=== PATIENT | female | born 1940 | race Caucasian/White ===

== ENCOUNTER → 2019-04-27 11:20 | Outpatient (CLI) | payer MEDICARE, OTHER, SELFPAY ==
--- NOTE | 2019-04-27 | DI.RAD.S_ITS ---
PROCEDURE: XR CHEST 2V INDICATIONS: COUGH TECHNIQUE: 2 views of the chest were acquired. COMPARISON: None. FINDINGS: Surgical changes and devices: None. Lungs and pleura: No pleural effusion or pneumothorax. There are diffuse hazy and reticular pulmonary opacities predominantly within the perihilar regions bilaterally. There is a more focal approximately 2.0 cm on opacity projecting over the right upper lobe/right perihilar region. Mediastinum: Mediastinal contours are normal. Heart size is normal. Bones and chest wall: No suspicious bony abnormalities. Soft tissues appear unremarkable. Mild multilevel degenerative changes of the spine. IMPRESSION: Diffuse hazy and reticular pulmonary opacities which can be seen with mild pulmonary edema versus a viral respiratory tract infection. There is an approximately 2.0 cm more focal pulmonary opacity projecting over the right upper lobe/right superior perihilar region concerning for pneumonia versus a pulmonary mass. Recommend followup CT of the chest (versus followup chest radiograph after treatment) to evaluate/exclude an underlying pulmonary malignancy. Findings discussed with the ordering provider Dr. Nadege Eubanks at 4:35 PM on 04/27/[address] Moncada. Dictated by: Wally Moncada M.D. on 04/27/2019 at 16:16 Approved by: Wally Moncada M.D. on 04/27/2019 at 16:38
== END ==
PROVIDERS: Visit Provider Internal Medicine
DX: R05 Cough (principal)
CPT/HCPCS: 71046

== ENCOUNTER → 2019-05-02 10:23 | Outpatient (CLI) | payer MEDICARE, OTHER, SELFPAY ==
--- NOTE | 2019-05-02 | DI.RAD.S_ITS ---
PROCEDURE: XR CHEST 2V INDICATIONS: COUGH TECHNIQUE: 2 views of the chest were acquired. COMPARISON: [facility], CT, CT CHEST W CON, 05/02/2019, 11:06. [facility], CR, XR CHEST 2V, 04/27/2019, 11:36. FINDINGS: Surgical changes and devices: None. Lungs and pleura: Lungs are abnormal with generalized interstitial prominence, and focal increased radiodensity with indistinct margination is present at the junction of the middle and upper thirds of the right lung, in an area also included on CT scanning 05/02/19. No pleural effusions or pneumothorax. Mediastinum: Mediastinal contours are normal. Heart size is normal. Bones and chest wall: No suspicious bony abnormalities. Soft tissues appear unremarkable. IMPRESSION: On review of the CT scan also obtained today there is a fracture with callus producing the area of indistinct increased radiodensity overlying the right upper lobe. This does not appear to represent a pathologic fracture, and benign etiology is presumed. Superimposed chronic appearing mild interstitial prominence is seen over the lung parenchyma elsewhere. Dictated by: Rudolph Shine M.D. on 05/02/2019 at 12:39 Approved by: Rudolph Shine M.D. on 05/02/2019 at 12:43
[2019-05-02 10:49] LABS: BUN Creatinine Ratio 18.9 (6-22); Blood Urea Nitrogen 17 mg/dL (7-17); Estimated Glomerular Filt Rate > 60.0 mL/min (>60)
--- NOTE | 2019-05-02 11:05 | DI.CT.S_ITS ---
PROCEDURE: CT CHEST W CON INDICATIONS: COUGH TECHNIQUE: After the administration of intravenous contrast, 5 mm thick sections acquired from the pulmonary apices to the posterior costophrenic angles. 1 mm axial lung, 5 mm thick coronal and sagittal reformats and 7 mm axial MIP were acquired. For radiation dose reduction, the following was used: automated exposure control, adjustment of mA and/or kV according to patient size. COMPARISON: , CR, XR CHEST 2V, 04/27/2019, 11:36. , CR, XR CHEST 2V, 05/02/2019, 10:46. FINDINGS: Image quality: Excellent. Lungs and pleura: There is abnormal interstitial prominence bilaterally with pattern suggestive of alveolitis, generalized, etiology and chronicity uncertain. Pulmonary fibrotic changes not seen as a honeycomb lung morphology but the disease process is significant.. No pleural effusions or pneumothorax. Central and peripheral airways are patent and normal in caliber. Mediastinum: Heart size is normal. No pericardial effusion. No mediastinal or hilar adenopathy by size criteria. Thoracic aorta and central pulmonary arteries are normal in size. Esophagus is normal in caliber. No hiatal hernia. Bones and chest wall: No suspicious bony lesions. No vertebral body compression fractures. No axillary or supraclavicular adenopathy by size criteria. Thyroid gland appears normal. Abdomen: Visualized upper abdominal solid organs appear normal. Upper abdominal bowel loops are normal in caliber. IMPRESSION: There is a generalized interstitial prominence that appears moderately severe bilaterally, seen also on plain film imaging. A mass within the lung parenchyma is not present. There is a rib fracture with callus formation over the junction of middle and upper thirds of the right lung, superimposed on the middle third of the right lung parenchyma in its transverse orientation. [employer] consultation may be warranted. Acute phase of idiopathic pulmonary fibrosis/alveolitis may be present as could atypical pneumonia or immune mediated pneumonitis. Extrinsic allergic alveolitis also should be considered. Dictated by: Rudolph Shine M.D. on 05/02/2019 at 13:38 Approved by: Rudolph Shine M.D. on 05/02/2019 at 13:42
== END ==
PROVIDERS: Visit Provider Internal Medicine
DX: R05 Cough (principal); Z01.812 Encounter for preprocedural laboratory examination
CPT/HCPCS: 36415; 71046; 71260; 82565; 84520

== ENCOUNTER → 2019-05-02 10:36 | Outpatient (CLI) | payer MEDICARE, SELFPAY | PROVIDERS: PCP Internal Medicine; Visit Provider Internal Medicine | DX: R05 Cough (principal) ==

== ENCOUNTER 2019-05-04 12:39 | Emergency (ER) | payer MEDICARE, OTHER, SELFPAY ==
[2019-05-04 12:46] VITALS: BP 179/86; PULSE 81; RESP 16; TEMP 36.5; O2SAT 97; BMI 24.3
--- NOTE | 2019-05-04 12:49 | DI.RAD.S_ITS ---
PROCEDURE: XR CHEST 2V INDICATIONS: cough TECHNIQUE: 2 views of the chest were acquired. COMPARISON: [facility], CT, CT CHEST W CON, 05/02/2019, 11:06. [facility], CR, XR CHEST 2V, 05/02/2019, 10:46. FINDINGS: Surgical changes and devices: None. Lungs and pleura: No focal air space opacities. A fine reticular pattern within the bilateral lungs raises the suspicion for early fibrotic changes. No pleural effusion or pneumothorax. Mediastinum: Mediastinal contours are normal. Heart size is normal. Bones and chest wall: No suspicious bony abnormalities. Soft tissues appear unremarkable. IMPRESSION: No focal air space opacities to suggest aspiration or infection. Findings suspicious for fibrotic changes. Dictated by: Kim Deluca M.D. on 05/04/2019 at 13:26 Approved by: Kim Deluca M.D. on 05/04/2019 at 13:28
[2019-05-04 15:03] LABS: Add Manual Diff / Slide Review NO; Basophils Absolute Auto 0 /uL (0-100); Basophils Percent Auto 0.6 % (0-2); Eosinophils Absolute Auto 300 /uL (0-450); Eosinophils Percent Auto 4.7 % (2-4); Hemoglobin 13.9 g/dL (12.0-16.0); Lymphocytes Absolute Auto 1000 /uL (1100-4500); Lymphocytes Percent Auto 17.3 % (25-40); Mean Corpuscular HGB Conc 34.7 % (30-36); Mean Corpuscular Hemoglobin 30.2 PG (26-34); Mean Corpuscular Volume 87.1 fL (80-100); Monocytes Absolute Auto 600 /uL (0-900); Monocytes Percent Auto 10.9 % (3-14); Neutrophils Absolute Auto 3900 /uL (1500-7000); Neutrophils Percent Auto 66.5 % (50-75); Platelet Count 263 X10^3/uL (150-400); Red Blood Cell Count 4.59 X10^6/uL (4.0-5.2); Red Cell Distribution Width 12.8 % (11.6-14.8); White Blood Cell Count 5.9 X10^3/uL (4.5-11.0)
--- NOTE | 2019-05-04 15:08 | ED_ITS ---
HPI - SOB/Dyspnea <Jojo Lopez PA-C - Last Filed: 05/04/19 21:14> General Chief Complaint: Shortness of Breath/Dyspnea Stated Complaint: coughing,had pneumonia, still having problems Time Seen by Provider: 05/04/19 14:53 Source: patient Mode of arrival: ambulatory Limitations: no limitations History of Present Illness HPI Narrative: This 78-year-old female with recent diagnoses of pneumonia and rib fracture comes to ED secondary to changes in her cough and chest discomfort today. She states on February 28, she ran into kitchen cupboard and hit her right rib area on the door. Two days later, she felt short of breath and started to have cough and was seen at another local emergency department, treated with [place]. She states initially she seemed to get better, but she started coughing again in the last couple of weeks when she had company and had to talk a lot. She states that cough seems correlated with talking, also worse with emotional excitement or anxiety, and somewhat with exertion. She states she does not tend to cough when she is home alone. She states that in the morning, the cough is productive with some foamy sputum, otherwise dry. She states that this morning she brought up a thick gob of mucus with some blood in the middle of it. That is the 1st time she has seen any blood. She states that she just did not feel as well earlier this morning, felt ?sick? in her chest, has difficulty describing the on this. She denies any chest pain. She denies any wheeze. She has not had any known fever, no chills or sweats. She states she has chronic postnasal drip that is unchanged. She denies any acid reflux. Denies difficulty swallowing. Denies any new pain or swelling in the extremities. She denies any nausea or vomiting and has been eating and drinking normally. She denies any known exposures or recent travel. She has never been a smoker. She saw her PCP last week for the cough. Lisinopril was discontinued. She was diagnosed with pneumonia and started on Levaquin. Chest CT was also ordered due to changes on the chest x-ray. Related Data Home Medications Medication Instructions Recorded Confirmed levofloxacin 750 mg PO [id number] 05/04/19 05/04/19 levothyroxine 12.5 mcg PO DAILY 05/04/19 lisinopril 5 mg PO DAILY 05/04/19 losartan 25 mg PO DAILY 05/04/19 05/04/19 Previous Rx's Medication Instructions Recorded albuterol sulfate 2 puff INHALATION Q2-6H PRN #8.5 05/04/19 gram budesonide 2 inhalation INHALATION Q12H #1 05/04/19 each Allergies Allergy/AdvReac Type Severity Reaction Status Date / Time No Known Drug Allergies Allergy Verified 05/04/19 12:46 Review of Systems <Jojo Lopez PA-C - Last Filed: 05/04/19 21:14> Review of Systems ROS Unobtainable: All systems reviewed & are unremarkable except as noted in HPI and below PFSH <Jojo Lopez PA-C - Last Filed: 05/04/19 21:14> Medical History (Updated 05/04/19 @ 16:15 by Jojo Lopez PA-C) HTN (hypertension) (Chronic) Hypothyroidism (Chronic) Paroxysmal atrial fibrillation (Resolved) Rosacea (Chronic) Surgical History (Updated 05/04/19 @ 15:41 by Jojo Lopez PA-C) Status post Mohs surgery (Resolved) Social History (Updated 05/04/19 @ 15:41 by Jojo Lopez PA-C) Smoking Status: Never smoker Social History (Updated 05/04/19 @ 15:41 by Jojo Lopez PA-C) Smoking Status: Never smoker Exam <Jojo Lopez PA-C - Last Filed: 05/04/19 21:14> Narrative Exam Narrative: GENERAL APPEARANCE: Patient sitting comfortably, in no distress. NECK/THYROID: Neck supple, no masses LUNGS: Clear to auscultation bilaterally. Intermittent dry cough on exam when speaking, no cough when not speaking. CHEST: No tenderness to palpation HEART: Regular rate and rhythm without murmur, normal S1, S2, no S3 or S4. ABDOMEN: Soft, NT, ND EXTREMITIES: No cyanosis or edema. No calf tenderness NEUROLOGIC: Alert and oriented, normal speech and coordination. Initial Vital Signs Initial Vital Signs: Vital Signs Temperature 97.7 F 05/04/19 12:46 Pulse Rate 81 05/04/19 12:46 Respiratory Rate 16 05/04/19 12:46 Blood Pressure 179/86 H 05/04/19 12:46 Pulse Oximetry 97 05/04/19 12:46 <Aubree Talley DO - Last Filed: 05/07/19 05:51> Initial Vital Signs Initial Vital Signs: Vital Signs Temperature 97.7 F 05/04/19 12:46 Pulse Rate 81 05/04/19 12:46 Respiratory Rate 16 05/04/19 12:46 Blood Pressure 179/86 H 05/04/19 12:46 Pulse Oximetry 97 05/04/19 12:46 Course <Jojo Lopez PA-C - Last Filed: 05/04/19 21:14> Course Additional Information: Patient is feeling significantly improved following nebulizer treatment, both in terms of dyspnea and cough. She is able to speak in complete sentences without coughing or stopping. Explained suspect reactive airways possibly related to her recent pneumonia, however she does have evidence of previous rib fracture which probably occurred a couple of months ago, as well as pulmonary fibrosis or other findings that need follow up on her CT. She will start steroid inhaler as well as albuterol, and I spoke with her primary care office and she will be seen on Thursday. She agreed to return to ED in the interim if any acutely worsening symptoms again. Orders Ordered: Discontinued Medications Albuterol (Ventolin) 2.5 mg INH NOW PRN PRN Reason: Wheezing Stop: 05/05/19 15:32 Last Admin: 05/04/19 15:35 Dose: 2.5 mg Documented by: PARMINDER Vital Signs Vital signs: Vital Signs - 8 hr 05/04/19 15:38 05/04/19 15:50 Pulse Rate 70 75 Respiratory Rate 20 15 Blood Pressure [Right Arm] 111/66 Pulse Oximetry 95 96 <DO Simone Lovell Last Filed: 05/07/19 05:51> Orders Ordered: Discontinued Medications Albuterol (Ventolin) 2.5 mg INH NOW PRN PRN Reason: Wheezing Stop: 05/05/19 15:32 Last Admin: 05/04/19 15:35 Dose: 2.5 mg Documented by: PARMINDER Vital Signs Vital signs: Vital Signs - 8 hr 05/04/19 15:38 05/04/19 15:50 Pulse Rate 70 75 Respiratory Rate 20 15 Blood Pressure [Right Arm] 111/66 Pulse Oximetry 95 96 MDM - SOB/Dyspnea <ROHINI Wang Last Filed: 05/04/19 21:14> Lab Data Attestation: I reviewed the patient's lab results. Result diagrams: 05/04/19 14:54 05/04/19 14:54 Labs: Lab Results 05/04/19 05/04/19 05/04/19 Range/Units 14:54 14:54 14:54 WBC 5.9 (4.5-11.0) X10^3/uL RBC 4.59 (4.0-5.2) X10^6/uL Hgb 13.9 (12.0-16.0) g/dL Hct 40.0 (36-46) % MCV 87.1 (80-100) fL MCH 30.2 (26-34) PG MCHC 34.7 (30-36) % RDW 12.8 (11.6-14.8) % Plt Count 263 (150-400) X10^3/uL Neut % (Auto) 66.5 (50-75) % Lymph % (Auto) 17.3 L (25-40) % Morton % (Auto) 10.9 (3-14) % Eos % (Auto) 4.7 H (2-4) % Baso % (Auto) 0.6 (0-2) % Neut # (Auto) 3900 (1958-0772) /uL Lymph # (Auto) 1000 L (7671-9623) /uL Morton # (Auto) 600 (0-900) /uL Eos # (Auto) 300 (0-450) /uL Baso # (Auto) 0 (0-100) /uL PT 12.8 H (10.1-12.7) SECONDS INR 1.1 (0.9-1.3) APTT 35 (26.4-36.2) SECONDS Sodium 135 L (137-145) mmol/L Potassium 4.2 (3.4-5.1) mmol/L Chloride 97 L (98-107) mmol/L Carbon Dioxide 28 (22-32) mmol/L BUN 14 (7-17) mg/dL Creatinine 0.90 (0.52-1.04) mg/dL Estimated GFR > 60.0 (>60) mL/min BUN/Creatinine Ratio 15.6 (6-22) Glucose 96 (80-110) mg/dL Calcium 9.5 (8.4-10.2) mg/dL Total Bilirubin 0.5 (0.2-1.3) mg/dL AST 29 (14-36) IU/L ALT 20 (9-52) IU/L Alkaline Phosphatase 86 (38-126) U/L Total Creatine Kinase 41 (30-135) U/L CK-MB (CK-2) TNP CK-MB (CK-2) Rel Index TNP Troponin I < 0.012 (0.01-0.034) ng/mL Total Protein 6.7 (6.3-8.2) g/dL Albumin 3.9 (3.5-5.0) g/dL Globulin 2.8 (1.7-4.1) g/dL Albumin/Globulin Ratio 1.4 (1.0-2.8) Lipase 149 (23-300) U/L Imaging Data Chest x-ray: Radiologist's impression: [address] [address] XRay Report Signed Patient: Damaris House CMR#: [id number] : 1940Acct:[id number] Age/Sex: 78 / FDate of Service: 05/04/19 Loc: ED Accession Number: [id number] Procedure: XR chest 2V Ordering Provider: Aubree Talley D.O. PROCEDURE: XR CHEST 2V INDICATIONS: cough TECHNIQUE: 2 views of the chest were acquired. COMPARISON: [facility], CT, CT CHEST W CON, 05/02/2019, 11:06. [facility], CR, XR CHEST 2V, 05/02/2019, 10:46. FINDINGS: Surgical changes and devices: None. Lungs and pleura: No focal air space opacities. A fine reticular pattern within the bilateral lungs raises the suspicion for early fibrotic changes. No pleural effusion or pneumothorax. Mediastinum: Mediastinal contours are normal. Heart size is normal. Bones and chest wall: No suspicious bony abnormalities. Soft tissues appear unremarkable. IMPRESSION: No focal air space opacities to suggest aspiration or infection. Findings suspicious for fibrotic changes. Dictated by: Kim Deluca M.D. on 05/04/2019 at 13:26 Approved by: Kim Deluca M.D. on 05/04/2019 at 13:28 ECG Data Attestation: I personally reviewed and interpreted this ECG as follows: (Normal sinus rhythm, rate 80, normal axis, no ST changes) <Aubree Talley, DO - Last Filed: 05/07/19 05:51> Lab Data Labs: Lab Results 05/04/19 05/04/19 05/04/19 Range/Units 14:54 14:54 14:54 WBC 5.9 (4.5-11.0) X10^3/uL RBC 4.59 (4.0-5.2) X10^6/uL Hgb 13.9 (12.0-16.0) g/dL Hct 40.0 (36-46) % MCV 87.1 (80-100) fL MCH 30.2 (26-34) PG MCHC 34.7 (30-36) % RDW 12.8 (11.6-14.8) % Plt Count 263 (150-400) X10^3/uL Neut % (Auto) 66.5 (50-75) % Lymph % (Auto) 17.3 L (25-40) % Morton % (Auto) 10.9 (3-14) % Eos % (Auto) 4.7 H (2-4) % Baso % (Auto) 0.6 (0-2) % Neut # (Auto) 3900 (1538-6468) /uL Lymph # (Auto) 1000 L (8890-7337) /uL Morton # (Auto) 600 (0-900) /uL Eos # (Auto) 300 (0-450) /uL Baso # (Auto) 0 (0-100) /uL PT 12.8 H (10.1-12.7) SECONDS INR 1.1 (0.9-1.3) APTT 35 (26.4-36.2) SECONDS Sodium 135 L (137-145) mmol/L Potassium 4.2 (3.4-5.1) mmol/L Chloride 97 L (98-107) mmol/L Carbon Dioxide 28 (22-32) mmol/L BUN 14 (7-17) mg/dL Creatinine 0.90 (0.52-1.04) mg/dL Estimated GFR > 60.0 (>60) mL/min BUN/Creatinine Ratio 15.6 (6-22) Glucose 96 (80-110) mg/dL Calcium 9.5 (8.4-10.2) mg/dL Total Bilirubin 0.5 (0.2-1.3) mg/dL AST 29 (14-36) IU/L ALT 20 (9-52) IU/L Alkaline Phosphatase 86 (38-126) U/L Total Creatine Kinase 41 (30-135) U/L CK-MB (CK-2) TNP CK-MB (CK-2) Rel Index TNP Troponin I < 0.012 (0.01-0.034) ng/mL Total Protein 6.7 (6.3-8.2) g/dL Albumin 3.9 (3.5-5.0) g/dL Globulin 2.8 (1.7-4.1) g/dL Albumin/Globulin Ratio 1.4 (1.0-2.8) Lipase 149 (23-300) U/L Discharge Plan Departure Patient Disposition: Home Clinical Impression: Cough present for greater than 3 weeks, Cough with hemoptysis RAD (reactive airway disease) Qualifiers: Asthma severity: unspecified severity Asthma persistence: unspecified Asthma complication type: with acute exacerbation Qualified Code(s): J45.901 - Un specified asthma with (acute) exacerbation Discharge Date/Time: 05/04/19 16:30 Instructions: DI for Reactive Airway Disease-Adult Activity Restrictions/Additional Instructions: Given your recent diagnosis of pneumonia and that the breathing treatment we gave you here today seemed to help her symptoms, I suspect that you have what we call reactive airways, which can cause cough and shortness of breath in the setting of inflammation such as pneumonia. There was a rib fracture noted on your recent CT scan, which likely happened when you hit the covered as it appeared to be an older fracture. You have some other more chronic appearing changes on your CT scan as well which we want you to follow up with Dr. Eubanks on to determine whether you need further treatment and referral. In the interim, please use the albuterol inhaler I have prescribed for you with the spacer as often as you needed for cough, tight chest or shortness of breath. Use the steroid inhaler twice daily with the spacer. (I have sent prescriptions to [facility]). I have scheduled you for a follow-up appointment with Dr. Eubanks on Thursday, check in at 11:00 a.m.. As we talked about, you should return to the ED right away in the interim if you have any new or acutely worsening symptoms Prescriptions: New budesonide 90 mcg/actuation aerosol powdr breath activated 2 inhalation INHALATION Q12H Qty: 1 RF: 0 albuterol sulfate 90 mcg/actuation HFA aerosol inhaler 2 puff INHALATION Q2-6H PRN (Reason: cough/SOB) Qty: 8.5 RF: 0 No Action levothyroxine 50 mcg tablet 12.5 mcg PO DAILY RF: 0 losartan 25 mg tablet 25 mg PO DAILY RF: 0 lisinopril 5 mg tablet 5 mg PO DAILY RF: 0 levofloxacin 750 mg tablet 750 mg PO [id number] RF: 0 Referrals: Nadege Eubanks MD [Primary Care Provider] -
[2019-05-04 15:10] LABS: INR 1.1 (0.9-1.3); Prothrombin Time 12.8 SECONDS (10.1-12.7)
[2019-05-04 15:12] LABS: PTT Partial Thromboplastin Tim 35 SECONDS (26.4-36.2)
[2019-05-04 15:14] LABS: Alanine Aminotransferase 20 IU/L (9-52); Albumin 3.9 g/dL (3.5-5.0); Albumin Globulin Ratio 1.4 (1.0-2.8); Alkaline Phosphatase 86 U/L (38-126); Aspartate Aminotransferase 29 IU/L (14-36); BUN Creatinine Ratio 15.6 (6-22); Bilirubin Total 0.5 mg/dL (0.2-1.3); Blood Urea Nitrogen 14 mg/dL (7-17); Calcium 9.5 mg/dL (8.4-10.2); Carbon Dioxide 28 mmol/L (22-32); Chloride 97 mmol/L (98-107); Creatine Kinase 41 U/L (30-135); Estimated Glomerular Filt Rate > 60.0 mL/min (>60); Globulin 2.8 g/dL (1.7-4.1); Glucose 96 mg/dL (80-110); HEMOLYSIS < 15 (0-50); Lipase 149 U/L (23-300); Potassium 4.2 mmol/L (3.4-5.1); Sodium 135 mmol/L (137-145); Total Protein 6.7 g/dL (6.3-8.2)
[2019-05-04 15:26] LABS: Troponin I < 0.012 ng/mL (0.01-0.034)
[2019-05-04] MEDS: ALBUTEROL 2.5 MG/3 ML NEB (ADULT) INH (15:35)
[2019-05-04 15:38] VITALS: PULSE 70; RESP 20; O2SAT 95
[2019-05-04 15:50] VITALS: BP 111/66; PULSE 75; RESP 15; O2SAT 96
== END 2019-05-04 16:30 | disposition home or self-care (01) ==
PROVIDERS: Emergency Medicine; Emergency Provider Internal Medicine; PCP Internal Medicine
DX: R04.2 Hemoptysis (principal); J45.901 Unspecified asthma with (acute) exacerbation
CPT/HCPCS: 36415; 71046; 80053; 82550; 83690; 84484; 85025; 85610; 85730; 93005; 94640; 99283; 99284; J7613

== ENCOUNTER → 2019-05-18 14:34 | Outpatient (CLI) | payer MEDICARE, OTHER, SELFPAY ==
--- NOTE | 2019-05-20 12:10 | PM.PFT.1 ---
Pulmonary Function Test Referral & Results Date Patient Seen: 05/18/19 Requesting provider: Nadege Eubanks Results: The spirometry demonstrates an FVC of 2.83 L which is 91% of predicted. The FEV1 was measured at 2.11 L which is 91% of predicted. The FEV1/FVC ratio was 75 which is 100% of predicted. Following the administration of bronchodilator there was no appreciable change. Lung volumes show an SVC of 2.62 L which is 86% of predicted. The diffusing capacity was measured at 14.68 which is 50% of predicted. No hemoglobin value was provided, so no correction for potential anemia could be made, if appropriate. The maximum voluntary ventilation was reduced Interpretation: This study demonstrates probably normal spirometry There is a significant reduction in diffusing capacity suggesting significant disease at the capillary alveolar level Clinical correlation suggested
== END ==
PROVIDERS: PCP Internal Medicine; Visit Provider Internal Medicine
DX: R05 Cough (principal); J44.9 Chronic obstructive pulmonary disease, unspecified
CPT/HCPCS: 94060; 94726; 94729

== ENCOUNTER → 2019-06-28 09:36 | Outpatient (CLI) | payer MEDICARE, OTHER, SELFPAY ==
--- NOTE | 2019-06-28 09:44 | DI.CT.S_ITS ---
PROCEDURE: CT CHEST HIGH RESOLUTION INDICATIONS: INTERSTITIAL LUNG DISEASE TECHNIQUE: Noncontrast 1.0 and 5.0 mm thick contiguous axial sections from the pulmonary apex to the posterior costophrenic angles, with 7 mm thick coronal and sagittal MIP reformats. 1 mm thick dynamic expiratory images acquired through the upper, mid, and lower lungs. 1.0 mm thick axial sections acquired from the anca to the posterior costophrenic angles in the prone end-inspiration position. For radiation dose reduction, the following was used: automated exposure control, adjustment of mA and/or kV according to patient size. COMPARISON: [facility], CT, CT CHEST W CON, 05/02/2019, 11:06. FINDINGS: Image quality: Excellent. Lungs: Diffuse upper and lower lobe subpleural areas of reticular and groundglass opacity although no definite honeycombing is seen at this time. Overall, no definite interval change. No acute consolidation. No tree-in-bud opacities. No definite bronchiectasis or mosaic lung attenuation Pleura: No pleural effusions or pneumothorax. Mediastinum: Heart size is normal. No pericardial effusion. Thoracic aorta and central pulmonary arteries are normal in size. Esophagus is normal in caliber. Bones and chest wall: No suspicious bony lesions. No vertebral body compression fractures. Abdomen: Possible incidentally noted cholelithiasis on image 56 series 3 IMPRESSION: Redemonstration of nonspecific, diffuse upper and lower lobe bilateral subpleural reticulation and scattered groundglass opacities. No definite honeycombing or interval progression. Dictated by: Ezekiel Perez M.D. on 06/28/2019 at 11:27 Approved by: Ezekiel Perez M.D. on 06/28/2019 at 11:35
== END ==
PROVIDERS: PCP Internal Medicine; Visit Provider Specialist
DX: J84.9 Interstitial pulmonary disease, unspecified (principal)
CPT/HCPCS: 71250

== ENCOUNTER → 2019-07-05 06:53 | Outpatient (CLI) | payer MEDICARE, OTHER, SELFPAY ==
--- NOTE | 2019-07-05 | DI.ECHO.S_ITS ---
[facility] +---------+ : : [address] : [address] : : : : [id number] : : : : Phone: [phone]---------+ Echocardiogram Report + + :Name: MICHELLE SANCHEZ Study Date: 07/05/2019 Height: 67 in : :[facility] Exam Location: [facility] Weight: 157 lb : : Gender: Female BSA: 1.8 m2 : :: 1940 Age: 79 yrs BP: 142/85 mmHg: :Reason For Study: Interstitial lung disease : : Performed By: Elsie Page : :Referring: [email or web address] : + + Interpretation Summary Ordering physician Dr. Elisa Lema. The left ventricle is normal in size. The ejection fraction is estimated to be 55-60%. Diastolic parameters suggest a pseudonormalization pattern, consistent with probable elevated filling pressures. The right ventricle is normal in size and function. No significant valvular pathology. There is mild luminal irregularity and echogenicity in the abdominal aorta, suggestive of aortic atherosclerotic disease. The IVC is of normal diameter and collapses greater than 50% with a sniff. This suggests a low right atrial pressure of 3 mm Hg. Procedure: A two-dimensional transthoracic echocardiogram with color flow and Doppler was performed. The study quality was technically adequate. There is no prior echocardiogram noted for this patient. The patient was in normal sinus rhythm during the exam. Left Ventricle: The left ventricle is normal in size. There is normal left ventricular wall thickness. There is no thrombus. The ejection fraction is estimated to be 55-60%. There are no focal wall motion abnormalities. Diastolic parameters suggest a pseudonormalization pattern, consistent with probable elevated filling pressures. Right Ventricle: The right ventricle is normal in size and function. Atria: Both atria are moderately dilated. There is no Doppler evidence for an interatrial shunt. Mitral Valve: The mitral valve leaflets are slightly calcified. There is trace mitral regurgitation. Aortic Valve: The aortic valve is trileaflet. The aortic valve opens well. There is no aortic valve stenosis. There is trace aortic regurgitation. Tricuspid Valve: The tricuspid valve is normal in structure and function. There is trace tricuspid regurgitation. The right ventricular systolic pressure is estimated to be at least 20 mmHg based on an estimated right atrial pressure of 3 mm Hg. Pulmonic Valve: The pulmonic valve is not well visualized. Great Vessels: The aortic root is normal size. The ascending aorta could not be visualized. There is mild luminal irregularity and echogenicity in the abdominal aorta, suggestive of aortic atherosclerotic disease. The pulmonary is not well visualized. The IVC is of normal diameter and collapses greater than 50% with a sniff. This suggests a low right atrial pressure of 3 mm Hg. Pericardium/ Pleura There is no pericardial effusion. There is no pleural effusion. MMode/2D Measurements & Calculations LVIDd: 4.7 cm LVOT diam: 2.0 cm LVIDs: 3.3 cm Ao root diam: 3.2 cm FS: 29.9 % IVSd: 0.75 cm LVPWd: 0.92 cm LV vaughan. diameter/BSA (cm/m^2): 2.6 LV sys. diameter/BSA (cm/m^2): 1.8 LA A2 area: 24.7 cm2 RA long axis: 5.5 cm LA A4 area: 21.7 cm2 RA area: 20.7 cm2 LA length (vol): 5.7 cm RA vol: 66.1 ml LA vol: 79.8 ml RA : 36.2 ml/m2 LA vol index: 43.8 ml/m2 IVC diam: 1.7 cm RVD1 (basal): 3.7 cm RVD2 (mid): 3.5 cm TAPSE: 2.5 cm Doppler Measurements & Calculations Ao V2 max: 118.9 cm/sec LVOT Max Eduar: 88.9 cm/sec Ao V2 mean: 88.3 cm/sec LV V1 max P.2 mmHg Ao max P.7 mmHg LV V1 VTI: 21.7 cm Ao mean P.3 mmHg CHRISTINE(I,D): 2.3 cm2 Ao V2 VTI: 29.9 cm CHRISTINE(V,D): 2.3 cm2 sev ratio: 0.73 CHRISTINE indexed to BSA (cm^2/m^2): 1.3 MV E max eduar: 94.3 cm/sec TR max eduar: 204.5 cm/sec MV A max eduar: 76.8 cm/sec TR max P.7 mmHg MV E/A: 1.2 PA V2 max: 68.8 cm/sec Med Peak E' Eduar: 5.7 cm/sec PA V2 mean: 52.2 cm/sec E/E' med: 16.5 PA mean P.1 mmHg Lat Peak E' Eduar: 9.6 cm/sec PA Accel Time: 0.17 sec E/E' lat: 9.8 E/e' average: 13.1 MV dec time: 0.12 sec MV P1/2t: 38.5 msec MV P1/2t max eduar: 94.7 cm/sec SV(LVOT): 68.2 ml MVA(2t): 5.7 cm2 Reading Physician:11:47 AM
== END ==
PROVIDERS: PCP Internal Medicine; Visit Provider Specialist
DX: J84.9 Interstitial pulmonary disease, unspecified (principal); R94.2 Abnormal results of pulmonary function studies
CPT/HCPCS: 93306

== ENCOUNTER → 2019-09-30 15:47 | Outpatient (CLI) | payer MEDICARE, OTHER, SELFPAY ==
--- NOTE | 2019-09-30 | DI.RAD.S_ITS ---
PROCEDURE: XR KNEE LT 3V INDICATIONS: ACUTE PAIN OF LEFT KNEE TECHNIQUE: 3 views of the knee were acquired. COMPARISON: [facility] [place], [place], XR KNEE ARTHRITIC SERIES , 03/28/2019, 9:37. FINDINGS: Bones: No fractures or dislocations. No suspicious bony lesions. Scattered degenerative subchondral sclerosis and spurring. Chondrocalcinosis projecting in the medial and lateral compartments. Severe narrowing of the patellofemoral joint space. Soft tissues: No joint effusion. No suspicious soft tissue calcifications. IMPRESSION: Severe patellofemoral degenerative joint disease. This is progressed since 03/28/19 Left knee chondrocalcinosis Dictated by: Ezekiel Perez M.D. on 09/30/2019 at 17:53 Approved by: Ezekiel Perez M.D. on 09/30/2019 at 17:54
== END ==
PROVIDERS: PCP Physician Assistant; Visit Provider Physician Assistant
DX: M25.562 Pain in left knee (principal); M17.12 Unilateral primary osteoarthritis, left knee; M11.262 Other chondrocalcinosis, left knee
CPT/HCPCS: 73562

== ENCOUNTER → 2019-10-25 18:45 | Outpatient (ROUT) | payer MEDICARE, OTHER, SELFPAY ==
[2019-10-25 19:38] LABS: BUN Creatinine Ratio 23.8 (6-22); Blood Urea Nitrogen 19 mg/dL (7-17); Calcium 9.7 mg/dL (8.4-10.2); Carbon Dioxide 32 mmol/L (22-32); Chloride 103 mmol/L (98-107); Estimated Glomerular Filt Rate > 60.0 mL/min (>60); Glucose 80 mg/dL (80-110); HEMOLYSIS < 15 (0-50); Potassium 4.1 mmol/L (3.4-5.1); Sodium 139 mmol/L (137-145)
[2019-10-25 20:07] LABS: TSH w/ Reflex to FT4 2.02 uIU/mL (0.47-4.68)
== END ==
PROVIDERS: PCP Physician Assistant; Visit Provider Internal Medicine
DX: E03.9 Hypothyroidism, unspecified (principal); I10 Essential (primary) hypertension
CPT/HCPCS: 80048; 84443

== ENCOUNTER → 2019-11-08 14:47 | Outpatient (CLI) | payer MEDICARE, OTHER, SELFPAY | PROVIDERS: PCP Physician Assistant; Referring Provider Internal Medicine; Visit Provider Internal Medicine | DX: M81.0 Age-related osteoporosis without current pathological fracture (principal); Z78.0 Asymptomatic menopausal state; E07.9 Disorder of thyroid, unspecified | CPT/HCPCS: 77080 ==